=== PATIENT | female | born 1990 | race Caucasian/White ===

== ENCOUNTER 2018-06-03 04:05 | Emergency (ER) | payer SELFPAY ==
[~2018-06-03] VITALS: Ht 170.2 cm; Wt 78.2 kg
[2018-06-03 04:58] LABS: BASOPHILS % (AUTO) 0.3 % (0.0-2.0); EOSINOPHILS % (AUTO) 5.4 % (1.0-6.0); HEMATOCRIT 38.9 % (36-46); HEMOGLOBIN 12.6 g/dL (12.0-16.0); LYMPHOCYTES # (AUTO) 1.9 K/uL (1.0-4.8); LYMPHOCYTES % (AUTO) 18.7 % (22.0-44.0); MEAN CORPUSCULAR HEMOGLOBIN 26.6 pg (26.0-34.0); MEAN CORPUSCULAR HGB CONC 32.4 G/dL (31.0-37.0); MEAN CORPUSCULAR VOLUME 82 fL (80-100); MONOCYTES # (AUTO) 0.7 K/uL (0.1-1.0); MONOCYTES % (AUTO) 6.9 % (2.0-9.0); NEUTROPHILS # (AUTO) 7.1 K/uL (1.8-7.7); NEUTROPHILS % (AUTO) 68.7 % (40.0-70.0); PLATELET COUNT (AUTO) 330 K/uL (150-450); RED BLOOD CELL COUNT(AUTO) 4.73 MIL/uL (4.00-5.20); RED CELL DISTRIBUTION WIDTH 14.8 % (11.5-14.5)
[2018-06-03 05:00] LABS: APPEARANCE,URINE CLEAR (CLEAR); BILIRUBIN,URINE NEGATIVE (NEGATIVE); GLUCOSE, URINE (UA) NEGATIVE (NEGATIVE); KETONES,URINE NEGATIVE (NEGATIVE); LEUKOCYTE ESTERASE ,URINE MODERATE (NEGATIVE); NITRATE,URINE NEGATIVE (NEGATIVE); OCCULT BLOOD,URINE NEGATIVE (NEGATIVE); PROTEIN,URINE NEGATIVE (NEGATIVE); UROBILINOGEN,URINE 0.2 mg/dL (<=1.0)
[2018-06-03 05:13] LABS: ANION GAP 7 mmol/L (8-16); CALCIUM, TOTAL 8.8 mg/dL (8.8-10.5); CARBON DIOXIDE 28 mmol/L (22-29); CHLORIDE 104 mmol/L (98-107); CREATININE 0.79 mg/dL (0.60-1.30); GLOMERULAR FILTR. RATE CALC > 60 mL/min (>60); GLUCOSE,RANDOM 122 mg/dL (70-110); POTASSIUM 3.7 mmol/L (3.5-5.1); SODIUM SERUM 139 mmol/L (136-145); UREA NITROGEN, BLOOD 16 mg/dL (7-18)
[2018-06-03 05:15] LABS: AMPHET/METH SCREEN,URINE POSITIVE (NEGATIVE); BARBITURATE SCREEN, URINE NEGATIVE (NEGATIVE); BENZODIAZEPINES SCREEN,URINE NEGATIVE (NEGATIVE); CANNABINOID SCREEN,URINE NEGATIVE (NEGATIVE); COCAINE SCREEN,URINE NEGATIVE (NEGATIVE); METHADONE SCREEN, URINE NEGATIVE (NEGATIVE); OPIATE SCREEN,URINE NEGATIVE (NEGATIVE)
[2018-06-03 05:24] LABS: ALANINE AMINOTRANSFERASE 22 U/L (12-78); ALBUMIN 3.5 g/dL (3.4-5.0); ALKALINE PHOSPHATASE 83 U/L (46-116); ASPARTATE AMINOTRANSFERASE 22 U/L (15-37); BILIRUBIN,TOTAL 0.3 mg/dL (0.1-1.0); HCG,QUANTITATIVE < 1 mIU/mL (0-6); LIPASE 73 U/L (73-393); TOTAL PROTEIN, SERUM 7.3 g/dL (6.4-8.2)
[2018-06-03 05:25] LABS: PHENCYCLIDINE SCREEN,URINE NEGATIVE (NEGATIVE)
[2018-06-03 05:33] LABS: BACTERIA,URINE Rare /HPF (None Seen); RBC,URINE 0-2 /HPF (0-2); SQUAMOUS EPITHELIAL CELL,UR Moderate /LPF (None Seen)
[2018-06-03 10:00] VITALS: BP 136/98
== END 2018-06-03 10:29 | disposition home or self-care (01) ==
LOC: EMS 04:20
DX: F41.9 Anxiety disorder, unspecified (principal); F15.10 Other stimulant abuse, uncomplicated; F17.210 Nicotine dependence, cigarettes, uncomplicated; Z59.0 Homelessness
CPT/HCPCS: 36415; 80053; 80307; 81001; 83690; 84702; 85025; 99284; G0480

== ENCOUNTER 2018-06-03 11:12 | Inpatient (IN) | payer MEDICAID ==
[~2018-06-03] VITALS: Ht 170.2 cm; Wt 82.2 kg
[2018-06-03] MEDS ORDERED: ACETAMINOPHEN 325 MG TABLET PO PRN (13:00)
[2018-06-03] MEDS ORDERED: GuaiFENesin/D-METHORPHAN [SUGAR-FREE] 200-20MG/10 ML SYRUP UDCUP PO PRN (13:00)
[2018-06-03] MEDS ORDERED: TUBERCULIN, PURIFIED PROTEIN DERIVATIVE 5 TU/0.1 ML SYRINGE ID ONE (13:00)
[2018-06-03] MEDS ORDERED: HydrOXYzine PAMOATE 50 MG CAPSULE PO PRN (13:00)
[2018-06-03] MEDS ORDERED: OLANZapine 5 MG RAPDIS TABLET PO PRN (13:00)
[2018-06-03] MEDS ORDERED: MAG HYDROX/AL HYDROX/SIMETH ES 30 ML SUSPENSION UDCUP PO PRN (13:00)
[2018-06-03] MEDS ORDERED: PROMETHAZINE HCL 25 MG TABLET PO PRN (13:00)
[2018-06-03] MEDS ORDERED: LOPERAMIDE HCL 2 MG CAPSULE PO PRN (13:00)
[2018-06-03] MEDS ORDERED: MAGNESIUM HYDROXIDE SUSPENSION 30 ML UDCUP PO PRN (13:00)
[2018-06-03 16:53] VITALS: BP 137/86
[2018-06-03] MEDS: THIAMINE HCL 100 MG TABLET PO SCH (18:00)
[2018-06-03] MEDS ORDERED: OLANZapine 5 MG RAPDIS TABLET PO SCH (21:00)
[2018-06-03] MEDS: LORazepam 2 MG TABLET PO PRN (22:43)
[2018-06-03] MEDS: ZOLPIDEM TARTRATE 10 MG TABLET PO PRN (22:43)
[2018-06-04 06:27] VITALS: BP 117/83
[2018-06-04 08:16] VITALS: BP 104/60
[2018-06-04] MEDS: THIAMINE HCL 100 MG TABLET PO SCH ×2 (09:43→17:02)
[2018-06-04] MEDS: TRIAMCINOLONE 0.1% 15 GM OINTMENT TP SCH ×2 (09:43→17:03)
[2018-06-04] MEDS: FOLIC ACID 1 MG TABLET PO SCH (09:43)
[2018-06-04] MEDS: MULTIVITAMINS WITH MINERALS, THERAPEUTIC TABLET PO SCH (09:43)
[2018-06-04] MEDS: LORATADINE 10 MG TABLET PO SCH (09:43)
[2018-06-04 16:13] VITALS: BP 133/61
[2018-06-04] MEDS: OLANZapine 10 MG RAPDIS TABLET PO SCH (20:38)
[2018-06-05 02:08] VITALS: BP 122/70
[2018-06-05 08:42] VITALS: BP 123/80
[2018-06-05] MEDS: FOLIC ACID 1 MG TABLET PO SCH (08:43)
[2018-06-05] MEDS: THIAMINE HCL 100 MG TABLET PO SCH ×2 (08:43→16:14)
[2018-06-05] MEDS: LORATADINE 10 MG TABLET PO SCH (08:43)
[2018-06-05] MEDS: MULTIVITAMINS WITH MINERALS, THERAPEUTIC TABLET PO SCH (08:43)
[2018-06-05] MEDS: TRIAMCINOLONE 0.1% 15 GM OINTMENT TP SCH ×2 (08:43→16:14)
[2018-06-05 16:16] VITALS: BP 123/67
[2018-06-05] MEDS: DIVALPROEX SODIUM 500 MG ER TABLET PO SCH (21:29)
[2018-06-05] MEDS: OLANZapine 10 MG RAPDIS TABLET PO SCH (21:29)
[2018-06-06] VITALS: BP 117/82
[2018-06-06 08:06] VITALS: BP 116/71
[2018-06-06] MEDS: FOLIC ACID 1 MG TABLET PO SCH (08:47)
[2018-06-06] MEDS: THIAMINE HCL 100 MG TABLET PO SCH ×2 (08:47→16:36)
[2018-06-06] MEDS: NALTREXONE HCL 50 MG TABLET PO SCH (08:47)
[2018-06-06] MEDS: TRIAMCINOLONE 0.1% 15 GM OINTMENT TP SCH ×2 (08:47→16:36)
[2018-06-06] MEDS: LORATADINE 10 MG TABLET PO SCH (08:47)
[2018-06-06] MEDS: MULTIVITAMINS WITH MINERALS, THERAPEUTIC TABLET PO SCH (08:47)
[2018-06-06] MEDS ORDERED: OLAN10TA22 PO (15:28)
[2018-06-06] MEDS ORDERED: NALT50TA PO (15:28)
[2018-06-06] MEDS ORDERED: DIVA500T52 PO (15:28)
[2018-06-06 16:17] VITALS: BP 112/71
[2018-06-06] MEDS: LORazepam 2 MG TABLET PO PRN (16:36)
[2018-06-06] MEDS: ZOLPIDEM TARTRATE 10 MG TABLET PO PRN (20:34)
[2018-06-06] MEDS: OLANZapine 10 MG RAPDIS TABLET PO SCH (20:34)
[2018-06-06] MEDS: DIVALPROEX SODIUM 500 MG ER TABLET PO SCH (20:34)
[2018-06-07 06:13] VITALS: BP 112/50
[2018-06-07] MEDS ORDERED: OLAN10TA6 PO (08:09)
[2018-06-07] MEDS ORDERED: DIVA500T52 PO (08:09)
[2018-06-07] MEDS ORDERED: NALT50TA6 PO (08:09)
[2018-06-07 08:22] VITALS: BP 134/93
[2018-06-07] MEDS: TRIAMCINOLONE 0.1% 15 GM OINTMENT TP SCH (08:22)
[2018-06-07] MEDS: NALTREXONE HCL 50 MG TABLET PO SCH (08:23)
[2018-06-07] MEDS: MULTIVITAMINS WITH MINERALS, THERAPEUTIC TABLET PO SCH (08:23)
[2018-06-07] MEDS: LORATADINE 10 MG TABLET PO SCH (08:23)
[2018-06-07] MEDS: FOLIC ACID 1 MG TABLET PO SCH (08:23)
[2018-06-07] MEDS: THIAMINE HCL 100 MG TABLET PO SCH (08:23)
== END 2018-06-07 10:45 | disposition home or self-care (01) | DRG 750 ==
LOC: EMS 11:13 → B3A 15:19
PROVIDERS: ADMIT Psychiatry & Neurology Psychiatry; ATTEND Psychiatry & Neurology Psychiatry
DX: F25.9 Schizoaffective disorder, unspecified (principal); R45.851 Suicidal ideations; S91.331A Puncture wound without foreign body, right foot, initial encounter; F17.210 Nicotine dependence, cigarettes, uncomplicated; F15.10 Other stimulant abuse, uncomplicated; L30.9 Dermatitis, unspecified; F60.0 Paranoid personality disorder; F41.9 Anxiety disorder, unspecified; Z91.19 Patient's noncompliance with other medical treatment and regimen; Z65.3 Problems related to other legal circumstances; Z59.0 Homelessness; X58.XXXA Exposure to other specified factors, initial encounter; Y93.89 Activity, other specified; Y92.89 Other specified places as the place of occurrence of the external cause; Y99.8 Other external cause status

== ENCOUNTER 2018-07-01 02:20 | Emergency (ER) | payer MEDICAID ==
[~2018-07-01] VITALS: Ht 170.2 cm; Wt 68.2 kg
[~2018-07-01 02:20] MED LIST: DIVA500T52 PO; NALT50TA PO; NALT50TA6 PO; OLAN10TA22 PO; OLAN10TA6 PO
[2018-07-01] MEDS ORDERED: KETOROLAC TROMETHAMINE 60 MG/2 ML VIAL IM ONE (03:30)
[2018-07-01 04:05] LABS: APPEARANCE,URINE CLEAR (CLEAR); BILIRUBIN,URINE NEGATIVE (NEGATIVE); GLUCOSE, URINE (UA) NEGATIVE (NEGATIVE); KETONES,URINE NEGATIVE (NEGATIVE); LEUKOCYTE ESTERASE ,URINE SMALL (NEGATIVE); NITRATE,URINE NEGATIVE (NEGATIVE); OCCULT BLOOD,URINE NEGATIVE (NEGATIVE); PH,URINE 7.5 (5.0-8.0); PROTEIN,URINE NEGATIVE (NEGATIVE); UROBILINOGEN,URINE 0.2 mg/dL (<=1.0)
[2018-07-01 04:10] LABS: AMPHET/METH SCREEN,URINE POSITIVE (NEGATIVE); BARBITURATE SCREEN, URINE NEGATIVE (NEGATIVE); BENZODIAZEPINES SCREEN,URINE NEGATIVE (NEGATIVE); CANNABINOID SCREEN,URINE NEGATIVE (NEGATIVE); COCAINE SCREEN,URINE NEGATIVE (NEGATIVE); METHADONE SCREEN, URINE NEGATIVE (NEGATIVE); OPIATE SCREEN,URINE NEGATIVE (NEGATIVE)
[2018-07-01 04:18] LABS: PHENCYCLIDINE SCREEN,URINE NEGATIVE (NEGATIVE)
[2018-07-01 04:30] VITALS: BP 104/71
[2018-07-01 04:33] LABS: BACTERIA,URINE None Seen /HPF (None Seen); RBC,URINE None Seen /HPF (0-2); WBC,URINE 0-2 /HPF (0-5)
== END 2018-07-01 05:54 | disposition home or self-care (01) ==
LOC: EMS 02:22
DX: R51 Headache (principal); M54.5 Low back pain; F15.10 Other stimulant abuse, uncomplicated; F17.210 Nicotine dependence, cigarettes, uncomplicated
CPT/HCPCS: 72100; 80307; 81001; 84703; 96372; 99284; J1885; 51701